=== PATIENT | male | born 1985 | race Caucasian/White ===

== ENCOUNTER 2018-08-06 20:29 | Emergency (ER) | payer BC, SELFPAY ==
--- NOTE | 2018-08-06 22:14 | CT ---
CT CHEST WITHOUT CONTRAST: Date: 08/06/18 Multiple axial tomograms obtained through the chest without IV enhancement. INDICATION: Chest pain. Trauma. FINDINGS: The lung ribeiro are clear. Heart and mediastinum unremarkable. Images through upper abdomen unremarka ble. There is indentation of the inner cortex of the lateral left 8th rib; however, I do not detect c ortical disruption. I do not confirm a fracture. Ribs otherwise unremarkable. Thoracic vertebra unrem arkable. IMPRESSION: No acute process identified. POS: [facility]
--- NOTE | 2018-08-06 22:15 | RAD ---
RIGHT HAND 3 VIEWS: Date: 08/06/18 HISTORY: Hand pain. FINDINGS: There is separation of the ulnar styloid which may represent an old ununited fracture. This is not ac marissa as the surfaces are corticated. Carpals and metacarpals appear intact. Phalanges appear intact. IMPRESSION: No acute fracture identified. POS: [facility]
== END 2018-08-06 22:26 | disposition home or self-care (01) ==
LOC: MADERS 20:29
DX: S63.601A Unspecified sprain of right thumb, initial encounter (principal); S20.212A Contusion of left front wall of thorax, initial encounter; F31.9 Bipolar disorder, unspecified; F17.210 Nicotine dependence, cigarettes, uncomplicated; Y04.0XXA Assault by unarmed brawl or fight, initial encounter; Y93.72 Activity, wrestling
CPT/HCPCS: 71250

== ENCOUNTER 2024-01-13 12:13 | Emergency (ER) | payer SELFPAY ==
[2024-01-13] MEDS ORDERED: Ketorolac Tromethamine 30 MG (1 mL) VIAL ONE (12:44)
[2024-01-13] MEDS ORDERED: Sodium Chloride 0.9% 2,000 ML ONE (12:44)
[2024-01-13 12:58] LABS: #Basophils 0.1 thou/uL (0.0-0.2); #Eosinophils 0.2 thou/uL (0.0-0.7); #Lymphocytes 1.4 thou/uL (1.20-3.40); #Monocytes 0.4 thou/uL (0.11-0.59); #Neutrophils 5.5 thou/uL (1.40-6.50); %Basophils 1.2 % (0.0-1.0); %Eosinophils 3.1 % (0.0-10.0); %Lymphocytes 18.3 % (21.0-51.0); %Monocytes 5.6 % (0.0-10.0); %Neutrophils 71.8 % (42.0-75.0); Hematocrit 44.3 % (42.0-52.0); Hemoglobin 14.7 g/dL (14.0-18.0); Mean Corpuscular HGB CONC 33.1 g/dL (32.0-36.0); Mean Corpuscular Hemoglobin 31.3 pg (27.0-31.0); Mean Corpuscular Volume 94.7 fl (78.0-98.0); Mean Platelet Volume 7.2 fL (7.4-10.4); Platelet Count 310 10x3/uL (130-400); RBC Distribution Width 11.6 % (11.5-14.5); Red Blood Cell (RBC) Count 4.68 mill/uL (4.70-6.10); White Blood Cell (WBC) Count 7.7 10x3/uL (4.8-10.8)
[2024-01-13 13:02] LABS: Anion Gap 17 mmol/L (10-20); BUN (Urea Nitrogen) 16 mg/dL (8.9-20.6); Calc. Creatinine Clearance 0 mL/min (70-130); Calcium 9.7 mg/dL (7.8-10.44); Carbon Dioxide 23 mmol/L (22-29); Chloride 104 mmol/L (98-107); Estimated GFR 59; Glucose 110 mg/dL (70-105); Sodium 140 mmol/L (136-145)
[2024-01-13 14:18] LABS: Bilirubin Negative (Negative); Blood, Urine Large (Negative); Glucose, Urine (Dipstick) Negative (Negative); Ketone, Urine Trace mg/dL (Negative); Leukocyte Negative (Negative); Nitrite Negative (Negative); Protein, Urine (Dipstick) 30 mg/dL (Neg-Trace); Specific Gravity, Urine 1.025 (1.005-1.030); Urobilinogen 0.2 mg/dL (Less than 2)
[2024-01-13 14:19] LABS: Clarity Cloudy (Clear)
[2024-01-13 14:26] LABS: Bacteria/HPF Rare-Few HPF (None Seen); CAUTI Indications for Culture Pelvic or flank pain; RBC/HPF Greater than 50 HPF (0-3); Squamous Epithelial 0-3 HPF (0-3); WBC/HPF 0-3 HPF (0-3)
[2024-01-13 14:27] LABS: Mucous/LPF 2+ LPF (<2+); Urine Culture Reflex No No
== END 2024-01-13 14:42 | disposition home or self-care (01) ==
LOC: MADERS 12:13
DX: N13.2 Hydronephrosis with renal and ureteral calculous obstruction (principal); F17.290 Nicotine dependence, other tobacco product, uncomplicated; F17.210 Nicotine dependence, cigarettes, uncomplicated
CPT/HCPCS: 74176; 80048; 81001; 85025; 96374; J1885; J7030